=== PATIENT | female | born 1950 | race Caucasian/White ===

== ENCOUNTER 2019-08-23 12:52 | Inpatient (IN) | payer MEDICARE, OTHER ==
[2019-08-23 16:02] VITALS: BP 178/97
[2019-08-23] MEDS ORDERED: Acetaminophen 500 MG TAB PO PRN (16:06)
[2019-08-23] MEDS ORDERED: Maalox 30 mL Cup PO PRN (16:06)
[2019-08-23] MEDS ORDERED: Magnesium Hydroxide (MOM) 30 mL UDC PO PRN (16:06)
[2019-08-23] MEDS: Atorvastatin Calcium 10 MG TAB PO SCH (21:50)
[2019-08-24] MEDS: Levothyroxine 0.1 Mg Tab PO SCH (06:38)
[2019-08-24] MEDS ORDERED: TRIFLUOPERAZINE HCL 10 MG PO SCH (09:00)
[2019-08-24] MEDS: Multivitamin Tab PO SCH (10:00)
--- NOTE | 2019-08-24 10:01 | Psychiatric Evaluation ---
DATE OF SERVICE: AGE: 69. SEX: Female. PHYSICIAN: Dr. Cardenas. CHIEF COMPLAINT: 5150 hold for grave disability. HISTORY OF PRESENT ILLNESS: The patient is a 69-year-old female who was transferred from [facility] on a 5150 hold for grave disability apparently and according to reports, the patient has history of schizophrenia as well as hypertension and encephalopathy. The patient brought from home because of diagnosis of acute encephalopathy to the [facility] and the [employer] was called because the patient has been confused and dehydrated and mumbling words and also was not able to answer questions. Also according to the admission report, it was noted by the neighbors that patient lost about 20 pounds and she was taken to the ER and the patient was given IV fluids and medically stabilized and then brought in to the [facility] for evaluation and treatment. The patient is still severely confused, "I'm 69 years old. "I live with my Darrion." The patient was not able to tell me who is Darrion and I have to ask her different questions until she at the end told me that he is her . The patient also said that she has 1 son, but she could not tell me what is his name. She also was not able to tell me when was the last time she ate or drank. Also, she was not able to tell me where does she live. She did remember her date. She is also not able to tell me other information because of her confusion and most information obtained from reviewing records. PAST PSYCHIATRIC HISTORY: The patient has a history of schizophrenia according to the chart, but no other information known at this time. PAST MEDICAL HISTORY: The patient admitted with diagnosis of encephalopathy and also dehydration and that was in [facility]. The patient also has hypertension. The patient is taking trifluoperazine and Seroquel. The patient also has hypothyroidism. SOCIAL HISTORY: It seems that the patient is . Lives with "Darrion." No known alcohol or drug use. No reports of abuse issues or no reports of legal issues. Also, no reports of chemical dependency issues. ALLERGIES: No known allergies. MENTAL STATUS EXAMINATION: The patient appears much older than her stated age. Pale. Seems to be malnourished. Confused. Slow to respond to questions and unable to answer the questions coherently. The patient did not answer questions regarding hallucinations or delusions, but she seems to be actively responding to stimuli. The patient did not answer question regarding suicide or homicide. The patient is alert, but seems to be disoriented to time, place, person and situation. Impaired immediate and recent memory, but intact remote memory and she did remember her date. Poor insight and she does not know that she is in a psychiatric hospital. Poor judgment and she has not been eating or drinking. Unable to assess her intelligence at this time because of her confusion. ASSESSMENT: PRIMARY DIAGNOSIS: Depressive mood disorder, unspecified, with psychotic features. SECONDARY DIAGNOSIS: Rule out dementia. Rule out schizophrenic disorder. TREATMENT PLAN: We will start the patient on Lexapro. We will monitor closely for further recommendations. Also, we will start psychotherapy and we will try to get more evaluation for the patient's condition for further treatment recommendations. ESTIMATED LENGTH OF STAY: 5-7 days. PATIENT'S STRENGTHS AND WEAKNESSES: The patient's strength is not clear at this time. Weakness is her ineffective coping and her depression. DISCHARGE PLAN: The patient will need placement. Outpatient treatment and followup will continue as an outpatient. CRITERIA FOR DISCHARGE: The patient will not be psychotic and will stabilize psychotropic medications and will establish outpatient treatment plans. JOB# [id number]
[2019-08-24] MEDS: Nicotine 14 mg/24 hr Tdm TD SCH (10:06)
--- NOTE | 2019-08-24 11:28 | History & Physical ---
ADMIT DATE: 08/23/2019 HISTORY OF PRESENT ILLNESS: We have a 69-year-old female with hypertension, hyperlipidemia, who is brought in for gravely disabled. The patient was admitted to outside hospital, was found to be in rhabdomyolysis and had UTI. The patient was confused. The patient was gravely ill and possibly was a danger to herself and has been admitted to the [facility]. PAST MEDICAL HISTORY: 1. Schizophrenia. 2. Hypertension. 3. Hyperlipidemia. PAST SURGICAL HISTORY: Unknown. MEDICATIONS: Reviewed. ALLERGIES: None. SOCIAL HISTORY: Unremarkable. REVIEW OF SYSTEMS: Difficult to obtain. PHYSICAL EXAMINATION: VITAL SIGNS: Temperature is 97.7, pulse 79, respirations 20, blood pressure 133/92. HEENT: Normocephalic, atraumatic head exam. NECK: Supple. CARDIOVASCULAR: Regular rate and rhythm. LUNGS: Decreased breath sounds. ABDOMEN: Soft, nontender. EXTREMITIES: No edema, cyanosis or clubbing. ASSESSMENT AND PLAN: 1. Encephalopathy. 2. Urinary tract infection. 3. Rhabdomyolysis. 4. Schizophrenia. 5. Hyperlipidemia. The patient will continue with her home meds. I reviewed the entire medical records from the outside hospital. We discussed nursing care with RN. The patient will continue supportive meds, we will need to repeat the labs and ensure complete resolution of urinary tract infection. JOB# [id number]
[2019-08-24] MEDS: Escitalopram Oxalate 5 mg Tab PO SCH (21:32)
[2019-08-24] MEDS: Atorvastatin Calcium 10 MG TAB PO SCH (21:32)
[2019-08-25] MEDS: Levothyroxine 0.1 Mg Tab PO SCH (06:55)
[2019-08-25] MEDS: Nicotine 14 mg/24 hr Tdm TD SCH (09:20)
[2019-08-25] MEDS: Fish Oil 1,000 MG SGL PO SCH (09:20)
[2019-08-25] MEDS: Multivitamin Tab PO SCH (09:20)
[2019-08-25] MEDS: Atorvastatin Calcium 10 MG TAB PO SCH ×2 (20:55→21:59)
[2019-08-25] MEDS: Escitalopram Oxalate 5 mg Tab PO SCH ×2 (20:56→21:59)
--- NOTE | 2019-08-25 21:09 | Psych Progress Note ---
Psych Progress Note - Intro Date of Progress Note: 08/25/19 - Assessment Assessment: Patient interviewed, case discussed with staff, chart and records reviewed. The patient remains confused and disorganized. The patient is unable to answer any interview questions. The patient per staff continues to have episodes of behavioral outbursts where she strikes staff at times. Tolerating medications well no plan for self-care. - Vitals, I&O Vitals: Vital Signs - 24 hr 08/25/19 08/25/19 06:33 14:00 Temp 97.2 F 98.4 F HR 72 60 RR 20 20 BP 132/74 159/85 O2 Sat % 97 96 - Objective Psych General Appearance: Report: No acute distress Psych Behavior: Report: Alert, Calm Psych Speech: Report: Mumbled, Soft Psych Mood: Report: Anxious Psych Affect: Report: Constricted Psych Cognition: Report: Confused Psych Insight: Report: Impaired Psych Judgement: Report: Impaired - Plan Plan: Continue current treatment plan, continue medications, continue to monitor behaviors. - Review of Relevant Data Review of Relevant Data: I have reviewed the following items and time nalini (where applicable) has been applied. Psych Data Reviewed: Vitals - Medications Current Medications: Current Medications Acetaminophen (Tylenol) 650 mg PO Q4H PRN PRN Reason: Temperature above 101 Stop: 10/22/19 16:05 Acetaminophen (Tylenol Extra Strength) 1,000 mg PO Q6H PRN PRN Reason: Pain (Moderate 4-6) Stop: 10/22/19 16:05 Al Hydrox/Mg Hydrox/Simethicone (Maalox) 30 ml PO Q4HR PRN PRN Reason: GI DISTRESS Stop: 10/22/19 16:05 Atorvastatin Calcium (Lipitor) 20 mg PO HS ANGELA Stop: 10/22/19 20:59 Last Admin: 08/25/19 20:55 Dose: Not Given Escitalopram Oxalate (Lexapro) 5 mg PO HS ANGELA; Protocol Stop: 10/23/19 20:59 Last Admin: 08/25/19 20:56 Dose: Not Given Fish Oil ([place] 3) 1,000 mg PO DAILY ANGELA Stop: 10/24/19 08:59 Last Admin: 08/25/19 09:20 Dose: Not Given Ibuprofen (Motrin) 400 mg PO Q4H PRN PRN Reason: Pain (Severe 7-10) Stop: 10/22/19 16:05 Levothyroxine Sodium (Synthroid) 0.1 mg PO QDAC ANGELA Stop: 10/23/19 07:29 Last Admin: 08/25/19 06:55 Dose: 0.1 mg Lorazepam (Ativan) 0.5 mg PO Q6HR PRN; Protocol PRN Reason: Agitation Stop: 10/22/19 16:12 Magnesium Hydroxide (Milk Of Magnesia) 30 ml PO HS PRN PRN Reason: Constipation Multivitamins/Vitamin C (Theragran) 1 tab PO DAILY ANGELA Stop: 10/23/19 08:59 Last Admin: 08/25/19 09:20 Dose: Not Given Nicotine (Nicotine Transdermal System) 14 mg TD DAILY ANGELA Stop: 10/23/19 08:59 Last Admin: 08/25/19 09:20 Dose: 14 mg Quetiapine Fumarate (Seroquel) 50 mg PO DAILY ANGELA; Protocol Stop: 10/23/19 08:59 Last Admin: 08/25/19 09:20 Dose: Not Given Zolpidem Tartrate (Ambien) 5 mg PO HS PRN PRN Reason: Insomnia Stop: 10/22/19 16:05 Last Admin: 08/24/19 21:33 Dose: 5 mg
[2019-08-26] MEDS: Levothyroxine 0.1 Mg Tab PO SCH (06:50)
[2019-08-26] MEDS: Multivitamin Tab PO SCH (08:30)
[2019-08-26] MEDS: Fish Oil 1,000 MG SGL PO SCH (08:30)
[2019-08-26] MEDS: Nicotine 14 mg/24 hr Tdm TD SCH (08:30)
--- NOTE | 2019-08-26 19:12 | Psych Progress Note ---
Psych Progress Note - Intro Date of Progress Note: 08/26/19 - Assessment Assessment: Patient interviewed, case discussed with staff, chart and records reviewed. The patient remains confused and disorganized. The patient is unable to answer any interview questions. The patient per staff continues to have episodes of behavioral outbursts where she strikes staff at times. Tolerating medications well no plan for self-care. - Vitals, I&O Vitals: Vital Signs - 24 hr 08/26/19 08/26/19 06:15 14:00 Temp 96.8 F 97.1 F HR 60 64 RR 20 20 BP 147/89 132/78 O2 Sat % 98 98 - Objective Psych General Appearance: Report: No acute distress Psych Behavior: Report: Alert, Calm Psych Speech: Report: Mumbled, Soft Psych Mood: Report: Anxious Psych Affect: Report: Constricted Psych Cognition: Report: Confused Psych Insight: Report: Impaired Psych Judgement: Report: Impaired - Plan Plan: Continue current treatment plan, continue medications, continue to monitor behaviors. - Review of Relevant Data Review of Relevant Data: I have reviewed the following items and time nalini (where applicable) has been applied. - Medications Current Medications: Current Medications Acetaminophen (Tylenol) 650 mg PO Q4H PRN PRN Reason: Temperature above 101 Stop: 10/22/19 16:05 Acetaminophen (Tylenol Extra Strength) 1,000 mg PO Q6H PRN PRN Reason: Pain (Moderate 4-6) Stop: 10/22/19 16:05 Al Hydrox/Mg Hydrox/Simethicone (Maalox) 30 ml PO Q4HR PRN PRN Reason: GI DISTRESS Stop: 10/22/19 16:05 Atorvastatin Calcium (Lipitor) 20 mg PO HS [facility] Stop: 10/22/19 20:59 Last Admin: 08/25/19 21:59 Dose: 20 mg Escitalopram Oxalate (Lexapro) 5 mg PO HS [facility]; Protocol Stop: 10/23/19 20:59 Last Admin: 08/25/19 21:59 Dose: 5 mg Fish Oil ([place] 3) 1,000 mg PO DAILY ANGELA Stop: 10/24/19 08:59 Last Admin: 08/26/19 08:30 Dose: 1,000 mg Ibuprofen (Motrin) 400 mg PO Q4H PRN PRN Reason: Pain (Severe 7-10) Stop: 10/22/19 16:05 Last Admin: 08/26/19 00:18 Dose: 400 mg Levothyroxine Sodium (Synthroid) 0.1 mg PO QDAC ANGELA Stop: 10/23/19 07:29 Last Admin: 08/26/19 06:50 Dose: 0.1 mg Lorazepam (Ativan) 0.5 mg PO Q6HR PRN; Protocol PRN Reason: Agitation Stop: 10/22/19 16:12 Last Admin: 08/26/19 16:32 Dose: 0.5 mg Magnesium Hydroxide (Milk Of Magnesia) 30 ml PO HS PRN PRN Reason: Constipation Multivitamins/Vitamin C (Theragran) 1 tab PO DAILY ANGELA Stop: 10/23/19 08:59 Last Admin: 08/26/19 08:30 Dose: 1 tab Nicotine (Nicotine Transdermal System) 14 mg TD DAILY ANGELA Stop: 10/23/19 08:59 Last Admin: 08/26/19 08:30 Dose: 14 mg Quetiapine Fumarate (Seroquel) 50 mg PO DAILY ANGELA; Protocol Stop: 10/23/19 08:59 Last Admin: 08/26/19 08:30 Dose: 50 mg Zolpidem Tartrate (Ambien) 5 mg PO HS PRN PRN Reason: Insomnia Stop: 10/22/19 16:05 Last Admin: 08/26/19 00:19 Dose: 5 mg
[2019-08-26] MEDS: Escitalopram Oxalate 5 mg Tab PO SCH (21:25)
[2019-08-26] MEDS: Atorvastatin Calcium 10 MG TAB PO SCH (21:25)
[2019-08-27] MEDS: Levothyroxine 0.1 Mg Tab PO SCH (06:32)
[2019-08-27] MEDS: Multivitamin Tab PO SCH (08:40)
[2019-08-27] MEDS: Nicotine 14 mg/24 hr Tdm TD SCH (08:42)
[2019-08-27] MEDS: Fish Oil 1,000 MG SGL PO SCH (08:43)
--- NOTE | 2019-08-27 09:54 | Progress Notes ---
DATE: 08/27/2019 SUBJECTIVE: Chart reviewed and the patient interviewed. Also discussed the patient's condition with the staff and reviewed records and labs. The patient is still confused and is still preoccupied and forgetful. The patient also is impulsive and still actively responding to stimuli. The patient also has episodes of agitation and of irritability and she is uncooperative with the staff. On the other hand, the patient continued to take her medications with no side effects. The patient's vital signs are stable and no new labs available for review. MENTAL STATUS EXAMINATION: Preoccupied. Disorganized thoughts. Actively responding and talking to self. ASSESSMENT: The patient is still psychotic and needs close monitoring. TREATMENT PLAN: We will increase Seroquel to 50 mg twice a day. Also, continue working on her irritability and her mood and continue to follow up. JOB# [id number]
--- NOTE | 2019-08-27 11:59 | Internal Medicine Prog Note ---
Internal Medicine Subjective - Subjective Service Date: 08/27/19 Patient seen and examined:: without staff Patient is:: awake, verbal Per staff patient has:: no adverse event, no episodes of fall Internal Medicine Objective - Physical Exam Vitals and I&O: Vital Signs Temp 96.5 F 08/27/19 06:04 Pulse 55 08/27/19 06:04 Resp 19 08/27/19 06:04 BP 107/68 08/27/19 06:04 Pulse Ox 98 08/27/19 06:04 Intake & Output 08/26/19 08/27/19 08/27/19 18:59 06:59 18:59 Intake Total 950 300 Balance 950 300 Intake: Oral 950 300 Other: # Voids 1 # Bowel Movements 0 Active Medications: Current Medications Acetaminophen (Tylenol) 650 mg PO Q4H PRN PRN Reason: Temperature above 101 Stop: 10/22/19 16:05 Acetaminophen (Tylenol Extra Strength) 1,000 mg PO Q6H PRN PRN Reason: Pain (Moderate 4-6) Stop: 10/22/19 16:05 Al Hydrox/Mg Hydrox/Simethicone (Maalox) 30 ml PO Q4HR PRN PRN Reason: GI DISTRESS Stop: 10/22/19 16:05 Atorvastatin Calcium (Lipitor) 20 mg PO HS ANGELA Stop: 10/22/19 20:59 Last Admin: 08/26/19 21:25 Dose: 20 mg Escitalopram Oxalate (Lexapro) 5 mg PO HS ANGELA; Protocol Stop: 10/23/19 20:59 Last Admin: 08/26/19 21:25 Dose: 5 mg Fish Oil ([place] 3) 1,000 mg PO DAILY ANGELA Stop: 10/24/19 08:59 Last Admin: 08/27/19 08:43 Dose: 1,000 mg Ibuprofen (Motrin) 400 mg PO Q4H PRN PRN Reason: Pain (Severe 7-10) Stop: 10/22/19 16:05 Last Admin: 08/26/19 00:18 Dose: 400 mg Levothyroxine Sodium (Synthroid) 0.1 mg PO QDAC ANGELA Stop: 10/23/19 07:29 Last Admin: 08/27/19 06:32 Dose: 0.1 mg Lorazepam (Ativan) 0.5 mg PO Q6HR PRN; Protocol PRN Reason: Agitation Stop: 10/22/19 16:12 Last Admin: 08/27/19 08:41 Dose: 0.5 mg Magnesium Hydroxide (Milk Of Magnesia) 30 ml PO HS PRN PRN Reason: Constipation Multivitamins/Vitamin C (Theragran) 1 tab PO DAILY ANGELA Stop: 10/23/19 08:59 Last Admin: 08/27/19 08:40 Dose: 1 tab Nicotine (Nicotine Transdermal System) 14 mg TD DAILY ANGELA Stop: 10/23/19 08:59 Last Admin: 08/27/19 08:42 Dose: 14 mg Quetiapine Fumarate (Seroquel) 50 mg PO BID ANGELA; Protocol Stop: 10/26/19 08:59 Last Admin: 08/27/19 08:41 Dose: 50 mg Zolpidem Tartrate (Ambien) 5 mg PO HS PRN PRN Reason: Insomnia Stop: 10/22/19 16:05 Last Admin: 08/26/19 21:26 Dose: 5 mg General: NAD HEENT: NC/AT Neck: Supple Lungs: CTAB Cardiovascular: RRR, Normal S1, Normal S2 Abdomen: soft, non-tender Extremities: clear Internal Medicine Assmt/Plan - Assessment Assessment: 1. Rhabhomylysis 2. UTI 3. Schizophrenia - Plan Plan: continue supportive care d/w r.n. Nutritional Asmnt/Malnutr-PDOC - Dietary Evaluation Malnutrition Findings (Please click <Entered> for more info): Nutritional Asmnt/Malnutrition Start: 08/24/19 13: 42 Text: Status: Complete Freq: Protocol: Document 08/24/19 13:42 ILEANA (Rec: 08/24/19 13:50 ILEANA [email or web address]) Nutritional Asmnt/Malnutrition Patient General Information Nutritional Screening High Risk Diagnosis Psychosis Pertinent Medical Hx/Surgical Hx HTN, Hyperlipidemia, Schizophrenia Subjective Information Pt is a 69-year-old female admitted on 08/22 d/t reported confusion at home with dehydration, neighbors reported she lost about 20 Lbs , pt was medically cleared and treated prior to admittance here. Pt ate 50% dinner last night per Meal/Nutrition Activity Record. Spoke with pt in community room while she was getting labs drawn. Pt stated the food was fine here, got upset when asked about her appetite at home. Pt stated you eat when you are hungry when asked about her appetite. Could not assess any recent weight loss, pt did not discuss, was able to get some food preferences. Recommending Renal diet Rx d/t recent labs (08/20 GFR 26, / GFR 32), spoke with charge nurse Mirlande regarding recommendation and lab values. Recommend adding fish oil to medication regimen d/t high serum triglycerides, /6 590. Spoke with pt nurse Mahesh regarding recommendation. Anthropometrics HT: 55 WT: 134 LB (60.91 kg) BMI: 22.42 (normal) GI/ Skin Integrity GI: WNL, Soft, Flat, Non- tender BM: Not Noted I/O: 320/Not Noted Skin: WNL, Intact Primitivo: 16 Diet Order: Regular Estimated Energy Needs: (Renal , CBW) 4305-3316 kcals (25-30 kcals/ kg) 45-50g Pro (0.75-0.8 g/kg) 7040-2233 ml (25-30 ml/kg) Current Diet Order/ Nutrition Support Regular Patient / S.O Can Pertinent Medications Maalox (PRN), Lipitor, Synthroid, MOM (PRN), Theragran Pertinent Labs 08/20: BUN/Cr 10/2.0, GFR 26 56: GFR 32, Chol 269, Tags 590, LDL 133, Phos 2.3 Nutritional Hx/Data Height 1.65 m Height (Calculated Centimeters) 165.1 Current Weight (lbs) 60.781 kg Weight (Calculated Kilograms) 60.8 Weight (Calculated Grams) 15120.4 [place] Body Weight 125 LB (56.81 kg) % [place] Body Weight 107 Body Mass Index (BMI) 22.3 Weight Status Approriate GI Symptoms Last BM Not Noted Skin Integrity/Comment: Skin: WNL, Intact Primitivo: 16 Estimated Nutritional Goals BEE in Kcals: Using Current wt Calories/Kcals/Kg 25-30 Kcals Calculated 6969-7997 Protein: Using Current wt Protein g/k.75-0.8 Protein Calculated 45-50 Fluid: ml 1814-5975 ml (25-30 ml/kg) Nutritional Problem 1. Problem Problem Altered nutrition related Etiology r/t renal dysfunction Signs/Symptoms: aeb labs 08/20 GFR 26, 5/6 GFR 32. Intervention/Recommendation Comments 1. Recommend Renal Diet Rx. 2. Recommend adding Fish Oil to medication regimen. Expected Outcomes/Goals Expected Outcomes/Goals 1.PO intake to meet 75% of estimated nutritional needs. 2.Monitor PO intake, wt, nutrition related labs, and skin integrity. 3.F/U as moderate risk in 3-5 days, 08/26-08/28.
[2019-08-27] MEDS: Atorvastatin Calcium 10 MG TAB PO SCH (20:46)
[2019-08-27] MEDS: Escitalopram Oxalate 5 mg Tab PO SCH (20:46)
[2019-08-28] MEDS: Levothyroxine 0.1 Mg Tab PO SCH (06:38)
[2019-08-28] MEDS: Multivitamin Tab PO SCH (08:33)
[2019-08-28] MEDS: Fish Oil 1,000 MG SGL PO SCH (08:33)
[2019-08-28] MEDS: Nicotine 14 mg/24 hr Tdm TD SCH (08:34)
--- NOTE | 2019-08-28 10:13 | Progress Notes ---
DATE: 08/28/2019 SUBJECTIVE: Chart reviewed and the patient interviewed. Also discussed the patient's condition with the staff and reviewed records and labs. The patient is still forgetful and is still preoccupied. The patient also is still impulsive and she is still actively responding. She also has episodes of yelling and screaming, but seems to be less than before. The patient also is interacting minimally with others. Otherwise, the patient is compliant with taking her medications with no side effects of medications here The patient's gait is steady. Vital signs are stable. MENTAL STATUS EXAMINATION: Unkempt. Anxious. Irritable mood. Confused and disorganized thoughts. ASSESSMENT: The patient is still agitated and confused. TREATMENT PLAN: Continue monitoring her medications and condition closely. Also, continue adjusting psychotropic medications and working on her behavioral modification. Also, [facility] accepted the patient and we will work on discharge plans and placement of the patient there. ESTIMATED LENGTH OF STAY: Two to three days. REASON FOR CONTINUED HOSPITAL STAY: The patient is still agitated and needs adjustment to her psychotropic medications. [facility]# [id number]
[2019-08-28] MEDS: Escitalopram Oxalate 5 mg Tab PO SCH (20:30)
[2019-08-28] MEDS: Atorvastatin Calcium 10 MG TAB PO SCH (20:30)
[2019-08-29] MEDS: Levothyroxine 0.1 Mg Tab PO SCH (06:42)
[2019-08-29] MEDS: Multivitamin Tab PO SCH (09:07)
[2019-08-29] MEDS: Fish Oil 1,000 MG SGL PO SCH (09:08)
[2019-08-29] MEDS: Nicotine 14 mg/24 hr Tdm TD SCH (09:08)
--- NOTE | 2019-08-29 14:58 | Internal Medicine Prog Note ---
Internal Medicine Subjective - Subjective Service Date: 08/29/19 (no cough nofevers) Patient is:: awake, verbal Per staff patient has:: no adverse event, no episodes of fall Internal Medicine Objective - Results Recent Labs: Laboratory Last Values POC Glucose 109 MG/DL (70 - 105) H 08/27/19 21:40 - Physical Exam Vitals and I&O: Vital Signs Temp 98.2 F 08/29/19 06:23 Pulse 97 08/29/19 06:23 Resp 18 08/29/19 08:00 BP 118/77 08/29/19 06:23 Pulse Ox 96 08/29/19 06:23 Intake & Output 08/28/19 08/29/19 08/29/19 18:59 06:59 18:59 Intake Total 120 Balance 120 Intake: Oral 120 Other: # Voids 2 2 # Bowel Movements 0 0 Active Medications: Current Medications Acetaminophen (Tylenol) 650 mg PO Q4H PRN PRN Reason: Temperature above 101 Stop: 10/22/19 16:05 Acetaminophen (Tylenol Extra Strength) 1,000 mg PO Q6H PRN PRN Reason: Pain (Moderate 4-6) Stop: 10/22/19 16:05 Al Hydrox/Mg Hydrox/Simethicone (Maalox) 30 ml PO Q4HR PRN PRN Reason: GI DISTRESS Stop: 10/22/19 16:05 Atorvastatin Calcium (Lipitor) 20 mg PO HS [facility] Stop: 10/22/19 20:59 Last Admin: 08/28/19 20:30 Dose: 20 mg Escitalopram Oxalate (Lexapro) 5 mg PO HS [facility]; Protocol Stop: 10/23/19 20:59 Last Admin: 08/28/19 20:30 Dose: 5 mg Fish Oil ([place] 3) 1,000 mg PO DAILY [facility] Stop: 10/24/19 08:59 Last Admin: 08/29/19 09:08 Dose: 1,000 mg Ibuprofen (Motrin) 400 mg PO Q4H PRN PRN Reason: Pain (Severe 7-10) Stop: 10/22/19 16:05 Last Admin: 08/26/19 00:18 Dose: 400 mg Levothyroxine Sodium (Synthroid) 0.1 mg PO QDAC [facility] Stop: 10/23/19 07:29 Last Admin: 05/13/20 06:42 Dose: 0.1 mg Lorazepam (Ativan) 0.5 mg PO Q6HR PRN; Protocol PRN Reason: Agitation Stop: 10/22/19 16:12 Last Admin: 08/28/19 08:33 Dose: 0.5 mg Magnesium Hydroxide (Milk Of Magnesia) 30 ml PO HS PRN PRN Reason: Constipation Multivitamins/Vitamin C (Theragran) 1 tab PO DAILY [facility] Stop: 10/23/19 08:59 Last Admin: 08/29/19 09:07 Dose: 1 tab Nicotine (Nicotine Transdermal System) 14 mg TD DAILY [facility] Stop: 10/23/19 08:59 Last Admin: 08/29/19 09:08 Dose: 14 mg Quetiapine Fumarate 25 mg/ (Quetiapine Fumarate 50 mg) 75 mg PO BID [facility] Stop: 10/28/19 16:59 Zolpidem Tartrate (Ambien) 5 mg PO HS PRN PRN Reason: Insomnia Stop: 10/22/19 16:05 Last Admin: 08/28/19 20:30 Dose: 5 mg General: NAD HEENT: NC/AT Neck: Supple Lungs: CTAB Cardiovascular: RRR, Normal S1, Normal S2 Abdomen: soft, non-tender Extremities: clear Internal Medicine Assmt/Plan - Assessment Assessment: 1. Covid-19 exposure 2. schizophrenia 3. Rhabdhomyysis 4. s/p UTI - Plan Plan: isolate patient for covid-19 nasopharyngeal swab for covid-19 d/w r.n. Nutritional Asmnt/Malnutr-PDOC - Dietary Evaluation Malnutrition Findings (Please click <Entered> for more info): Nutritional Asmnt/Malnutrition Start: 08/24/19 13: 42 Text: Status: Complete Freq: Protocol: Document 08/24/19 13:42 ILEANA (Rec: 08/24/19 13:50 ILEANA [email or web address]) Nutritional Asmnt/Malnutrition Patient General Information Nutritional Screening High Risk Diagnosis Psychosis Pertinent Medical Hx/Surgical Hx HTN, Hyperlipidemia, Schizophrenia Subjective Information Pt is a 69-year-old female admitted on 08/22 d/t reported confusion at home with dehydration, neighbors reported she lost about 20 Lbs , pt was medically cleared and treated prior to admittance here. Pt ate 50% dinner last night per Meal/Nutrition Activity Record. Spoke with pt in community room while she was getting labs drawn. Pt stated the food was fine here, got upset when asked about her appetite at home. Pt stated you eat when you are hungry when asked about her appetite. Could not assess any recent weight loss, pt did not discuss, was able to get some food preferences. Recommending Renal diet Rx d/t recent labs (08/20 GFR 26, 08/21 GFR 32), spoke with charge nurse Mirlande regarding recommendation and lab values. Recommend adding fish oil to medication regimen d/t high serum triglycerides, 08/21 590. Spoke with pt nurse Mahesh regarding recommendation. Anthropometrics HT: 55 WT: 134 LB (60.91 kg) BMI: 22.42 (normal) GI/ Skin Integrity GI: WNL, Soft, Flat, Non- tender BM: Not Noted I/O: 320/Not Noted Skin: WNL, Intact Primitivo: 16 Diet Order: Regular Estimated Energy Needs: (Renal , CBW) 9013-0846 kcals (25-30 kcals/ kg) 45-50g Pro (0.75-0.8 g/kg) 8301-3054 ml (25-30 ml/kg) Current Diet Order/ Nutrition Support Regular Patient / S.O Can Pertinent Medications Maalox (PRN), Lipitor, Synthroid, MOM (PRN), Theragran Pertinent Labs 08/20: BUN/Cr 10/2.0, GFR 26 08/21: GFR 32, Chol 269, Tags 590, LDL 133, Phos 2.3 Nutritional Hx/Data Height 1.65 m Height (Calculated Centimeters) 165.1 Current Weight (lbs) 60.781 kg Weight (Calculated Kilograms) 60.8 Weight (Calculated Grams) 74450.4 [place] Body Weight 125 LB (56.81 kg) % [place] Body Weight 107 Body Mass Index (BMI) 22.3 Weight Status Approriate GI Symptoms Last BM Not Noted Skin Integrity/Comment: Skin: WNL, Intact Primitivo: 16 Estimated Nutritional Goals BEE in Kcals: Using Current wt Calories/Kcals/Kg 25-30 Kcals Calculated 8934-0559 Protein: Using Current wt Protein g/k.75-0.8 Protein Calculated 45-50 Fluid: ml 6870-1766 ml (25-30 ml/kg) Nutritional Problem 1. Problem Problem Altered nutrition related Etiology r/t renal dysfunction Signs/Symptoms: aeb labs 08/20 GFR 26, 08/21 GFR 32. Intervention/Recommendation Comments 1. Recommend Renal Diet Rx. 2. Recommend adding Fish Oil to medication regimen. Expected Outcomes/Goals Expected Outcomes/Goals 1.PO intake to meet 75% of estimated nutritional needs. 2.Monitor PO intake, wt, nutrition related labs, and skin integrity. 3.F/U as moderate risk in 3-5 days, 08/26-08/28.
[2019-08-29] MEDS: Escitalopram Oxalate 5 mg Tab PO SCH (20:55)
[2019-08-29] MEDS: Atorvastatin Calcium 10 MG TAB PO SCH (20:55)
[2019-08-30] MEDS: Levothyroxine 0.1 Mg Tab PO SCH (06:36)
[2019-08-30] MEDS: Nicotine 14 mg/24 hr Tdm TD SCH (08:35)
[2019-08-30] MEDS: Fish Oil 1,000 MG SGL PO SCH (08:36)
[2019-08-30] MEDS: Multivitamin Tab PO SCH (08:37)
[2019-08-30] MEDS: Atorvastatin Calcium 10 MG TAB PO SCH (20:20)
[2019-08-30] MEDS: Escitalopram Oxalate 5 mg Tab PO SCH (20:20)
[2019-08-31] MEDS: Levothyroxine 0.1 Mg Tab PO SCH (06:36)
[2019-08-31] MEDS: Multivitamin Tab PO SCH (08:49)
[2019-08-31] MEDS: Fish Oil 1,000 MG SGL PO SCH (08:49)
[2019-08-31] MEDS: Nicotine 14 mg/24 hr Tdm TD SCH (09:45)
--- NOTE | 2019-08-31 14:44 | Internal Medicine Prog Note ---
Internal Medicine Subjective - Subjective Service Date: 08/31/19 (complaining of non-productive cough) Patient seen and examined:: without staff Patient is:: awake, verbal Per staff patient has:: no adverse event, no episodes of fall Internal Medicine Objective - Results Recent Labs: Laboratory Last Values POC Glucose 109 MG/DL (70 - 105) H 08/27/19 21:40 - Physical Exam Vitals and I&O: Vital Signs Temp 98.1 F 08/31/19 06:23 Pulse 57 08/31/19 06:23 Resp 16 08/31/19 08:00 BP 151/79 08/31/19 06:23 Pulse Ox 100 08/31/19 06:23 Intake & Output 08/30/19 08/31/19 08/31/19 18:59 06:59 18:59 Intake Total 1000 120 Balance 1000 120 Intake: Oral 1000 120 Other: # Voids 4 2 # Bowel Movements 1 0 Stool Characteristics Formed Formed Brown Brown Active Medications: Current Medications Acetaminophen (Tylenol) 650 mg PO Q4H PRN PRN Reason: Temperature above 101 Stop: 10/22/19 16:05 Acetaminophen (Tylenol Extra Strength) 1,000 mg PO Q6H PRN PRN Reason: Pain (Moderate 4-6) Stop: 10/22/19 16:05 Al Hydrox/Mg Hydrox/Simethicone (Maalox) 30 ml PO Q4HR PRN PRN Reason: GI DISTRESS Stop: 10/22/19 16:05 Atorvastatin Calcium (Lipitor) 20 mg PO HS [facility] Stop: 10/22/19 20:59 Last Admin: 08/30/19 20:20 Dose: 20 mg Escitalopram Oxalate (Lexapro) 5 mg PO HS [facility]; Protocol Stop: 10/23/19 20:59 Last Admin: 08/30/19 20:20 Dose: 5 mg Fish Oil ([place] 3) 1,000 mg PO DAILY [facility] Stop: 10/24/19 08:59 Last Admin: 08/31/19 08:49 Dose: 1,000 mg Ibuprofen (Motrin) 400 mg PO Q4H PRN PRN Reason: Pain (Severe 7-10) Stop: 10/22/19 16:05 Last Admin: 08/26/19 00:18 Dose: 400 mg Levothyroxine Sodium (Synthroid) 0.1 mg PO QDAC ANGELA Stop: 10/23/19 07:29 Last Admin: 08/31/19 06:36 Dose: 0.1 mg Magnesium Hydroxide (Milk Of Magnesia) 30 ml PO HS PRN PRN Reason: Constipation Multivitamins/Vitamin C (Theragran) 1 tab PO DAILY [facility] Stop: 10/23/19 08:59 Last Admin: 08/31/19 08:49 Dose: 1 tab Nicotine (Nicotine Transdermal System) 14 mg TD DAILY [facility] Stop: 10/23/19 08:59 Last Admin: 08/31/19 09:45 Dose: 14 mg Quetiapine Fumarate 25 mg/ (Quetiapine Fumarate 50 mg) 75 mg PO BID [facility] Stop: 10/28/19 16:59 Last Admin: 08/31/19 08:49 Dose: 75 mg General: NAD HEENT: NC/AT Neck: Supple Lungs: CTAB Cardiovascular: RRR, Normal S1, Normal S2 Abdomen: soft, non-tender Extremities: clear Internal Medicine Assmt/Plan - Assessment Assessment: 1. Covid-19 exposure 2. schizophrenia 3. Rhabdhomyysis 4. s/p UTI - Plan Plan: isolate patient for covid-19 continue supportive care Nutritional Asmnt/Malnutr-PDOC - Dietary Evaluation Malnutrition Findings (Please click <Entered> for more info): Nutritional Asmnt/Malnutrition Start: 08/24/19 13: 42 Text: Status: Complete Freq: Protocol: Document 08/24/19 13:42 ILEANA (Rec: 08/24/19 13:50 ILEANA [email or web address]) Nutritional Asmnt/Malnutrition Patient General Information Nutritional Screening High Risk Diagnosis Psychosis Pertinent Medical Hx/Surgical Hx HTN, Hyperlipidemia, Schizophrenia Subjective Information Pt is a 69-year-old female admitted on 08/22 d/t reported confusion at home with dehydration, neighbors reported she lost about 20 Lbs , pt was medically cleared and treated prior to admittance here. Pt ate 50% dinner last night per Meal/Nutrition Activity Record. Spoke with pt in community room while she was getting labs drawn. Pt stated the food was fine here, got upset when asked about her appetite at home. Pt stated you eat when you are hungry when asked about her appetite. Could not assess any recent weight loss, pt did not discuss, was able to get some food preferences. Recommending Renal diet Rx d/t recent labs (08/20 GFR 26, 08/21 GFR 32), spoke with charge nurse Mirlande regarding recommendation and lab values. Recommend adding fish oil to medication regimen d/t high serum triglycerides, /6 590. Spoke with pt nurse Mahesh regarding recommendation. Anthropometrics HT: 55 WT: 134 LB (60.91 kg) BMI: 22.42 (normal) GI/ Skin Integrity GI: WNL, Soft, Flat, Non- tender BM: Not Noted I/O: 320/Not Noted Skin: WNL, Intact Primitivo: 16 Diet Order: Regular Estimated Energy Needs: (Renal , CBW) 4766-2990 kcals (25-30 kcals/ kg) 45-50g Pro (0.75-0.8 g/kg) 1288-0469 ml (25-30 ml/kg) Current Diet Order/ Nutrition Support Regular Patient / S.O Can Pertinent Medications Maalox (PRN), Lipitor, Synthroid, MOM (PRN), Theragran Pertinent Labs 08/20: BUN/Cr 10/2.0, GFR 26 08/21: GFR 32, Chol 269, Tags 590, LDL 133, Phos 2.3 Nutritional Hx/Data Height 1.65 m Height (Calculated Centimeters) 165.1 Current Weight (lbs) 60.781 kg Weight (Calculated Kilograms) 60.8 Weight (Calculated Grams) 51020.4 [place] Body Weight 125 LB (56.81 kg) % [place] Body Weight 107 Body Mass Index (BMI) 22.3 Weight Status Approriate GI Symptoms Last BM Not Noted Skin Integrity/Comment: Skin: WNL, Intact Primitivo: 16 Estimated Nutritional Goals BEE in Kcals: Using Current wt Calories/Kcals/Kg 25-30 Kcals Calculated 7132-8514 Protein: Using Current wt Protein g/k.75-0.8 Protein Calculated 45-50 Fluid: ml 9914-0665 ml (25-30 ml/kg) Nutritional Problem 1. Problem Problem Altered nutrition related Etiology r/t renal dysfunction Signs/Symptoms: aeb labs 08/20 GFR 26, 08/21 GFR 32. Intervention/Recommendation Comments 1. Recommend Renal Diet Rx. 2. Recommend adding Fish Oil to medication regimen. Expected Outcomes/Goals Expected Outcomes/Goals 1.PO intake to meet 75% of estimated nutritional needs. 2.Monitor PO intake, wt, nutrition related labs, and skin integrity. 3.F/U as moderate risk in 3-5 days, 08/26-08/28.
--- NOTE | 2019-08-31 16:18 | Progress Notes ---
DATE: 08/29/2019 PSYCHIATRIC PROGRESS NOTE SUBJECTIVE: "I have cold and my legs get stiff." Chart was reviewed and the patient interviewed and discussed the patient's condition with the staff and reviewed records and labs. The patient still has episodes of irritability and agitation, was yelling and screaming episodes. The patient also is still restless and she still has difficulty with her mood. The patient also still has difficulty controlling her temper and she is yelling and screaming for no apparent reason. Otherwise, the patient is compliant with taking her medications with no side effects of medications. Vital signs are stable and no new labs available for review and the patient was walking with a walker. MENTAL STATUS EXAMINATION: Anxious. Depressed mood. Irritable and easily agitated and demanding. Suspicious and paranoid. The patient denies any hallucinations or delusions, but she is paranoid. The patient denies any thoughts of suicide or homicide. ASSESSMENT: The patient is still irritable and agitated. TREATMENT PLAN: We will increase Seroquel to 75 mg twice a day. We will continue to monitor behavior and condition closely and working on placement issue. JOB# [id number]
--- NOTE | 2019-08-31 16:18 | Progress Notes ---
DATE: PSYCHIATRIC PROGRESS NOTE SUBJECTIVE: Chart was reviewed and the patient interviewed. Also discussed the patient's condition with the staff and reviewed records and labs. The patient is calmer and she is less agitated and less irritable. The patient also is interacting appropriately and she is denying any intention to harm herself or others. She also seems to be slightly confused, but no behavioral problems. The patient also accepted by [facility] and I spoke to the staff in [place] who accepted discharging the patient today. ASSEESSMENT: The patient is not suicidal or homicidal or psychotic and she is ready for discharge. TREATMENT PLAN: We will discharge the patient today to [facility]. Outpatient treatment and followup to continue there. JOB# [id number]
--- NOTE | 2019-08-31 19:25 | Progress Notes ---
DATE: 08/31/2019 SUBJECTIVE: Chart was reviewed and the patient interviewed. Also discussed the patient's condition with the staff and reviewed records and labs. The patient continued to be cooperative and she is still calm and cooperative with treatment. The patient also less irritable and less agitated. The patient also is interacting more with peers and with others. The patient denies any hallucinations or delusions, but she is still slightly confused. I reviewed vital signs are stable and no new labs available for review. MENTAL STATUS EXAMINATION: Confused. Calm. Cooperative. No hallucinations or delusions. ASSESSMENT: The patient is confused, but calm and cooperative. TREATMENT PLAN: Plan to discharge the patient today. [place] accepted the patient and the patient to be discharged today and I spoke with the staff in [place] who accepted the patient and waiting for the patient for the second day to be there. At the same time, the patient is to continue her current medications in [facility]. JOB# [id number]
[2019-08-31] MEDS: Escitalopram Oxalate 5 mg Tab PO SCH (21:00)
[2019-08-31] MEDS: Atorvastatin Calcium 10 MG TAB PO SCH (21:00)
[2019-09-01] MEDS: Levothyroxine 0.1 Mg Tab PO SCH (06:36)
[2019-09-01] MEDS: Fish Oil 1,000 MG SGL PO SCH (09:28)
[2019-09-01] MEDS: Multivitamin Tab PO SCH (09:28)
[2019-09-01] MEDS: Nicotine 14 mg/24 hr Tdm TD SCH (09:29)
--- NOTE | 2019-09-01 11:10 | Progress Notes ---
DATE: 09/01/2019 SUBJECTIVE: A 69-year-old female transferred from another hospital due to grave disability, history of schizophrenia, hypertension, encephalopathy. On [id number], patient noted to be calmer, less irritable, less agitated, still with ongoing confusion. She is more cooperative, allowing ADLs, not saying too much, mostly quiet, keeps to self. Medications reviewed. Labs reviewed. Vitals reviewed. Blood pressure 132/75, pulse of 64. Per nursing, no acute distress. Slept about 7 hours. On [id number] with me, able to name only; per staff, able to name only, very confused, preoccupied. ASSESSMENT: A 69-year-old female, somewhat difficult to interview. Time was spent attempting, but she is pretty confused, disoriented. Nursing notes were reviewed. Labs were reviewed. Tolerant of medications thus far. No overt SI or HI. PLAN: We will continue to monitor. We will continue dosing of Seroquel, seems to be calmer. JOB# [id number]
[2019-09-01] MEDS: Atorvastatin Calcium 10 MG TAB PO SCH (20:14)
[2019-09-01] MEDS: Escitalopram Oxalate 5 mg Tab PO SCH (20:14)
[2019-09-02] MEDS: Levothyroxine 0.1 Mg Tab PO SCH (06:43)
[2019-09-02] MEDS: Multivitamin Tab PO SCH (10:00)
[2019-09-02] MEDS: Nicotine 14 mg/24 hr Tdm TD SCH (10:00)
[2019-09-02] MEDS: Fish Oil 1,000 MG SGL PO SCH (10:00)
--- NOTE | 2019-09-02 12:02 | Progress Notes ---
DATE: 09/02/2019 SUBJECTIVE: A 69-year-old female transferred from an outside hospital due to grave disability, history of schizophrenia and hypertension. The patient is sleeping, arousable, irritable. When I go to see her, she states "come back later, go away, does not ____ engage with me." I tried to talk to her further, she is very confused, oriented, AO to name only. Per staff, able to only make simple needs known. Generally confused. Per staff, irritable, guarded, preoccupied, very impulsive and unpredictable. Medications were reviewed. Labs were reviewed. Vitals were reviewed. Blood pressure 143/60, pulse of 96. No overt side effects. MEDICATIONS: The patient is currently on dosing of Lexapro and Seroquel. ASSESSMENT: A 69-year-old female with ongoing behavioral disturbances, irritable, very confused, ongoing disorientation. Seems to be somewhat calmer since when she first got to the hospital, possibly approaching her baseline. No EPS, no akathisia. PLAN: We will continue to monitor. Dr. Cardenas to see the patient tomorrow. JOB# [id number]
[2019-09-02] MEDS: Atorvastatin Calcium 10 MG TAB PO SCH (20:15)
[2019-09-02] MEDS: Escitalopram Oxalate 5 mg Tab PO SCH (20:15)
[2019-09-03] MEDS: Levothyroxine 0.1 Mg Tab PO SCH (06:38)
[2019-09-03] MEDS: Multivitamin Tab PO SCH (08:01)
[2019-09-03] MEDS: Nicotine 14 mg/24 hr Tdm TD SCH (08:01)
[2019-09-03] MEDS: Fish Oil 1,000 MG SGL PO SCH (08:01)
--- NOTE | 2019-09-03 10:23 | Progress Notes ---
DATE: 09/03/2019 SUBJECTIVE: Chart reviewed and the patient interviewed. Also discussed the patient's condition with the staff and reviewed records and labs. The patient's affect is brighter. The patient is calm and cooperative, and interacting appropriately. The patient denies any hallucinations or delusions. ASSESSMENT: The patient is not psychotic or suicidal or homicidal at this time. TREATMENT PLAN: Planning to discharge the patient today to [facility] with plans for follow her there. [facility]# [id number]
--- NOTE | 2019-09-03 14:39 | Internal Medicine Prog Note ---
Internal Medicine Subjective - Subjective Service Date: 09/03/19 Patient is:: awake, verbal Per staff patient has:: no adverse event, no episodes of fall Internal Medicine Objective - Results Recent Labs: Laboratory Last Values POC Glucose 109 MG/DL (70 - 105) H 08/27/19 21:40 - Physical Exam Vitals and I&O: Vital Signs Temp 98.1 F 09/03/19 13:53 Pulse 59 09/03/19 13:53 Resp 20 09/03/19 13:53 BP 166/81 09/03/19 13:53 Pulse Ox 98 09/03/19 13:53 Intake & Output 09/02/19 09/03/19 09/03/19 18:59 06:59 18:59 Intake Total 800 360 Balance 800 360 Intake: Oral 800 360 Other: # Voids 3 1 # Bowel Movements 0 Stool Characteristics Formed Brown Active Medications: Current Medications Acetaminophen (Tylenol) 650 mg PO Q4H PRN PRN Reason: Temperature above 101 Stop: 10/22/19 16:05 Acetaminophen (Tylenol Extra Strength) 1,000 mg PO Q6H PRN PRN Reason: Pain (Moderate 4-6) Stop: 10/22/19 16:05 Al Hydrox/Mg Hydrox/Simethicone (Maalox) 30 ml PO Q4HR PRN PRN Reason: GI DISTRESS Stop: 10/22/19 16:05 Atorvastatin Calcium (Lipitor) 20 mg PO HS [facility] Stop: 10/22/19 20:59 Last Admin: 09/02/19 20:15 Dose: 20 mg Escitalopram Oxalate (Lexapro) 5 mg PO HS [facility]; Protocol Stop: 10/23/19 20:59 Last Admin: 09/02/19 20:15 Dose: 5 mg Fish Oil ([place] 3) 1,000 mg PO DAILY [facility] Stop: 10/24/19 08:59 Last Admin: 09/03/19 08:01 Dose: 1,000 mg Ibuprofen (Motrin) 400 mg PO Q4H PRN PRN Reason: Pain (Severe 7-10) Stop: 10/22/19 16:05 Last Admin: 08/26/19 00:18 Dose: 400 mg Levothyroxine Sodium (Synthroid) 0.1 mg PO QDAC ANGELA Stop: 10/23/19 07:29 Last Admin: 09/03/19 06:38 Dose: 0.1 mg Magnesium Hydroxide (Milk Of Magnesia) 30 ml PO HS PRN PRN Reason: Constipation Multivitamins/Vitamin C (Theragran) 1 tab PO DAILY [facility] Stop: 10/23/19 08:59 Last Admin: 09/03/19 08:01 Dose: 1 tab Nicotine (Nicotine Transdermal System) 14 mg TD DAILY [facility] Stop: 10/23/19 08:59 Last Admin: 09/03/19 08:01 Dose: 14 mg Quetiapine Fumarate 25 mg/ (Quetiapine Fumarate 50 mg) 75 mg PO BID [facility] Stop: 10/28/19 16:59 Last Admin: 09/03/19 08:01 Dose: 75 mg General: NAD HEENT: NC/AT Neck: Supple Lungs: CTAB Cardiovascular: RRR, Normal S1, Normal S2 Abdomen: soft, non-tender Extremities: clear Neurological: no change Internal Medicine Assmt/Plan - Assessment Assessment: 1. Covid-19 exposure 2. schizophrenia 3. Rhabdhomyysis 4. s/p UTI 5. Covid-19 negative x 1 6. Non-productive cough - Plan Plan: repeat covid-19 due to possible false negative patient exposed to covid patient hold discharge Nutritional Asmnt/Malnutr-PDOC - Dietary Evaluation Malnutrition Findings (Please click <Entered> for more info): Nutritional Asmnt/Malnutrition Start: 08/24/19 13: 42 Text: Status: Complete Freq: Protocol: Document 08/24/19 13:42 ILEANA (Rec: 08/24/19 13:50 ILEANA JUAN [email or web address]) Nutritional Asmnt/Malnutrition Patient General Information Nutritional Screening High Risk Diagnosis Psychosis Pertinent Medical Hx/Surgical Hx HTN, Hyperlipidemia, Schizophrenia Subjective Information Pt is a 69-year-old female admitted on 08/22 d/t reported confusion at home with dehydration, neighbors reported she lost about 20 Lbs , pt was medically cleared and treated prior to admittance here. Pt ate 50% dinner last night per Meal/Nutrition Activity Record. Spoke with pt in community room while she was getting labs drawn. Pt stated the food was fine here, got upset when asked about her appetite at home. Pt stated you eat when you are hungry when asked about her appetite. Could not assess any recent weight loss, pt did not discuss, was able to get some food preferences. Recommending Renal diet Rx d/t recent labs (08/20 GFR 26, 08/21 GFR 32), spoke with charge nurse Mirlande regarding recommendation and lab values. Recommend adding fish oil to medication regimen d/t high serum triglycerides, 08/21 590. Spoke with pt nurse Mahesh regarding recommendation. Anthropometrics HT: 55 WT: 134 LB (60.91 kg) BMI: 22.42 (normal) GI/ Skin Integrity GI: WNL, Soft, Flat, Non- tender BM: Not Noted I/O: 320/Not Noted Skin: WNL, Intact Primitivo: 16 Diet Order: Regular Estimated Energy Needs: (Renal , CBW) 9859-1680 kcals (25-30 kcals/ kg) 45-50g Pro (0.75-0.8 g/kg) 1470-8621 ml (25-30 ml/kg) Current Diet Order/ Nutrition Support Regular Patient / S.O Can Pertinent Medications Maalox (PRN), Lipitor, Synthroid, MOM (PRN), Theragran Pertinent Labs 08/20: BUN/Cr 10/2.0, GFR 26 08/21: GFR 32, Chol 269, Tags 590, LDL 133, Phos 2.3 Nutritional Hx/Data Height 1.65 m Height (Calculated Centimeters) 165.1 Current Weight (lbs) 60.781 kg Weight (Calculated Kilograms) 60.8 Weight (Calculated Grams) 05022.4 [place] Body Weight 125 LB (56.81 kg) % [place] Body Weight 107 Body Mass Index (BMI) 22.3 Weight Status Approriate GI Symptoms Last BM Not Noted Skin Integrity/Comment: Skin: WNL, Intact Primitivo: 16 Estimated Nutritional Goals BEE in Kcals: Using Current wt Calories/Kcals/Kg 25-30 Kcals Calculated 1629-1996 Protein: Using Current wt Protein g/k.75-0.8 Protein Calculated 45-50 Fluid: ml 3284-7764 ml (25-30 ml/kg) Nutritional Problem 1. Problem Problem Altered nutrition related Etiology r/t renal dysfunction Signs/Symptoms: aeb labs 08/20 GFR 26, 08/21 GFR 32. Intervention/Recommendation Comments 1. Recommend Renal Diet Rx. 2. Recommend adding Fish Oil to medication regimen. Expected Outcomes/Goals Expected Outcomes/Goals 1.PO intake to meet 75% of estimated nutritional needs. 2.Monitor PO intake, wt, nutrition related labs, and skin integrity. 3.F/U as moderate risk in 3-5 days, 08/26-08/28.
[2019-09-03] MEDS: Escitalopram Oxalate 5 mg Tab PO SCH (20:23)
[2019-09-03] MEDS: Atorvastatin Calcium 10 MG TAB PO SCH (20:23)
[2019-09-04] MEDS: Levothyroxine 0.1 Mg Tab PO SCH (06:44)
[2019-09-04] MEDS: Nicotine 14 mg/24 hr Tdm TD SCH (09:18)
[2019-09-04] MEDS: Fish Oil 1,000 MG SGL PO SCH (09:18)
[2019-09-04] MEDS: Multivitamin Tab PO SCH (09:18)
--- NOTE | 2019-09-04 12:23 | Progress Notes ---
DATE: 09/04/2019 SUBJECTIVE: Chart was reviewed and the patient interviewed. Also discussed the patient's condition with the staff and reviewed records and labs. The patient was supposed to be discharged yesterday, but for unknown reason, the patient did not leave and she is still in the hospital. The staff reported that Dr. Lambert said not to discharge the patient and he never contacted me to tell me the reason for why is cancelling the discharge and I was never contacted by any of the staff to cancel my discharge order. The patient is still cooperative and exhibiting no behavioral issues. ASSESSMENT: The patient is not exhibiting any behavioral problems and she would be discharged. TREATMENT PLAN: Planning to discharge the patient today and outpatient treatment and followup will continue as an outpatient. JOB# [id number]
[2019-09-04] MEDS: Atorvastatin Calcium 10 MG TAB PO SCH (20:49)
[2019-09-04] MEDS: Escitalopram Oxalate 5 mg Tab PO SCH (20:49)
[2019-09-05] MEDS: Levothyroxine 0.1 Mg Tab PO SCH (06:33)
[2019-09-05] MEDS: Nicotine 14 mg/24 hr Tdm TD SCH (09:26)
[2019-09-05] MEDS: Multivitamin Tab PO SCH (09:27)
[2019-09-05] MEDS: Fish Oil 1,000 MG SGL PO SCH (09:27)
== END 2019-09-05 14:22 | DRG 881 ==
LOC: GERO 14:52
PROVIDERS: ADMIT Psychiatry & Neurology Psychiatry; ATTEND Psychiatry & Neurology Psychiatry
DX: F32.9 Major depressive disorder, single episode, unspecified (principal); G93.40 Encephalopathy, unspecified; M62.82 Rhabdomyolysis; N39.0 Urinary tract infection, site not specified; F20.9 Schizophrenia, unspecified; I10 Essential (primary) hypertension; E78.5 Hyperlipidemia, unspecified; Z79.899 Other long term (current) drug therapy
CPT/HCPCS: 82948-90; 83036-90; 97530; X3904; Z7610